=== PATIENT | male | born 1985 | race Caucasian/White ===

== ENCOUNTER 2016-08-28 09:05 | Emergency (ER) | payer MEDICARE, OTHER ==
[2016-08-28] MEDS ORDERED: ACETAMINOPHEN 325 MG TABLET PO ONE (10:32)
--- NOTE | 2016-08-28 10:32 | ER Document Report ---
ED ENT - General Chief Complaint: Ear Pain Stated Complaint: EAR PAIN Mode of Arrival: Ambulatory Information source: Patient Notes: This is a 30-year-old male who presents with left ear pain for the past 2 days. He states that it feels similar to prior ear infection. He has a history of hypertension and he did take his scheduled clonidine and amlodipine this morning prior to arrival. He denies any fevers or chills or systemic symptoms. He has had no sore throat and mild nasal congestion. He is on dialysis and has not missed any appointments and is scheduled for dialysis tomorrow. TRAVEL OUTSIDE OF THE [place] IN LAST 30 DAYS: No - Related Data Allergies/Adverse Reactions: No Known Allergies Allergy (Verified 08/28/16 09:17) Past Medical History - General Information source: Patient - Social History Smoking Status: Current Every Day Smoker Cigarette use (# per day): No Chew tobacco use (# tins/day): No Frequency of alcohol use: Occasional Drug Abuse: None Family History: Reviewed & Not Pertinent Patient has suicidal ideation: No Patient has homicidal ideation: No - Past Medical History Cardiac Medical History: Reports: Hx Hypertension - meds x 4-5 yrs Denies: Hx Coronary Artery Disease, Hx Heart Attack Pulmonary Medical History: Denies: Hx Asthma, Hx Bronchitis, Hx COPD, Hx Pneumonia, Hx Tuberculosis Neurological Medical History: Denies: Hx Cerebrovascular Accident, Hx Seizures Renal/ Medical History: Reports: Hx Renal Insufficiency, Other - dialysis. Denies: Hx Peritoneal Dialysis Musculoskeltal Medical History: Denies Hx Arthritis Psychiatric Medical History: Reports: Hx Depression - Immunizations Immunizations up to date: Yes Hx Diphtheria, Pertussis, Tetanus Vaccination: Yes Review of Systems - Review of Systems Notes: REVIEW OF SYSTEMS: CONSTITUTIONAL : Denies fever, chills, or sweats. Denies recent illness. EENT: As per history of present illness CARDIOVASCULAR: Denies chest pain. RESPIRATORY: Denies cough, cold, or chest congestion. Denies shortness of breath, difficulty breathing, or wheezing. GASTROINTESTINAL: Denies abdominal pain. Denies nausea, vomiting, or diarrhea. Denies constipation. GENITOURINARY: Denies difficulty urinating, painful urination, burning, frequency, or blood in urine. MUSCULOSKELETAL: Denies neck or back pain or joint pain or swelling. SKIN: Denies rash or skin lesions. HEMATOLOGIC : Denies easy bruising or bleeding. LYMPHATIC: Denies swollen, enlarged glands. NEUROLOGICAL: Denies altered mental status or loss of consciousness. Denies headache. PSYCHIATRIC: Denies anxiety or stress or depression. ALL OTHER SYSTEMS REVIEWED AND NEGATIVE. Physical Exam - Vital signs Vitals: Temp Pulse Resp BP Pulse Ox 97.7 F 91 20 175/106 H 96 08/28/16 09:11 08/28/16 09:11 08/28/16 09:11 08/28/16 09:11 08/28/16 09:11 - Notes Notes: PHYSICAL EXAMINATION: GENERAL: Well-appearing, well-nourished and in no acute distress. HEAD: Atraumatic, normocephalic. EYES: Pupils equal round and reactive to light, extraocular movements intact, sclera anicteric, conjunctiva are normal. ENT: nares patent, oropharynx clear without exudates. Moist mucous membranes. R TM pearly anderson and clear. Left TM erythematous and bulging with purulence. NECK: Normal range of motion, supple without lymphadenopathy LUNGS: Breath sounds clear to auscultation bilaterally and equal. No wheezes rales or rhonchi. HEART: Regular rate and rhythm without murmurs ABDOMEN: Soft, nontender, normoactive bowel sounds. No guarding, no rebound. No masses appreciated. EXTREMITIES: Normal range of motion, no pitting or edema. No cyanosis. NEUROLOGICAL: No focal motor or sensory deficits PSYCH: Normal mood, normal affect. SKIN: Warm, Dry, normal turgor, no rashes or lesions noted. Course - Re-evaluation Re-evalutation: 08/28/16 10:29 Patient states he has tolerated amoxicillin in the past without difficulties. He is instructed to monitor his blood pressure home. He will follow up for dialysis tomorrow. He is comfortable with the plan and agrees to return for any fevers or worsening symptoms. - Vital Signs Vital signs: Temp Pulse Resp BP Pulse Ox 97.7 F 91 20 175/106 H 96 08/28/16 09:11 08/28/16 09:11 08/28/16 09:11 08/28/16 09:11 08/28/16 09:11 Discharge - Discharge Clinical Impression: Elevated blood pressure reading Left otitis media Qualifiers: Otitis media type: unspecified Disposition: HOME, SELF-CARE Additional Instructions: OTITIS MEDIA: You have a middle ear infection (otitis media). This is usually a complication of a cold or sore throat. The middle ear cavity becomes filled with infection. Pressure and stretching of the ear drum cause pain. Antibiotics are required. A 10 day course is usually prescribed. A decongestant may be recommended if you have a "runny nose." You may need anesthetic drops or other pain medication. A follow-up exam may be recommended to make sure the infection has completely cleared. If the ear begins to drain, it means the ear drum has ruptured. This will usually heal spontaneously. However, it means you should keep the ear dry until re-examined by a doctor. Call the physician or return for examination at once if there is severe headache, stiff neck, confusion, increasing fever, or dizziness. You should improve significantly within two days. If you're not better, call the doctor. AMOXICILLIN: Amoxicillin is a member of the penicillin family. It covers the germs likely to cause ear, bronchial, and urinary infections better than plain penicillin. Amoxicillin can be taken without regard to meals. Nausea after taking the medication is rare, but can occur. Diarrhea can occur, particularly in small children. Vaginal yeast infections and oral thrush in infants are also common. Contact your physician if these problems occur. Allergy to penicillins is common. If you have had an allergic reaction to any drug of the penicillin family, you should never take any other penicillin. Notify your doctor at once if you develop hives, itching, swelling, faintness, or shortness of breath. Less serious side effects can include nausea or diarrhea. USE OF ACETAMINOPHEN (Tylenol): Acetaminophen may be taken for pain relief or fever control. It's much safer than aspirin, offering a wider range of "safe" dosages. It is safe during . Some brand names are Tylenol, Panadol, Datril, Anacin 3, Tempra, and Liquiprin. Acetaminophen can be repeated every four hours. The following are maximum recommended dosages: WEIGHT Dose Drops Elixir Chewable( 80mg) (LBS.) drprs=droppers tsp=teaspoon 6 40 mg 0.4 ml (1/2) 6-11 80 mg 0.8 ml (full) tsp 1 tab 12-16 120 mg 1 1/2 drprs 3/4 tsp 1 1/2 tabs 17-23 160 mg 2 drprs 1 tsp 2 tabs 24-30 240 mg 3 drprs 1 1/2 tsp 3 tabs 30-35 320 mg 2 tsp 4 tabs 36-41 360 mg 2 1/4 tsp 4 1/2 tabs 42-47 400 mg 2 1/2 tsp 5 tabs 48-53 480 mg 3 tsp 6 tabs 54-59 520 mg 3 1/4 tsp 6 1/2 tabs 60-64 560 mg 3 1/2 tsp 7 tabs 65-70 600 mg 3 3/4 tsp 7 1/2 tabs 71-76 640 mg 4 tsp 8 tabs 77-82 720 mg 4 1/2 tsp 9 tabs 83-88 800 mg 5 tsp 10 tabs >89 pounds or adults 650 mg to 900 mg Acetaminophen can be repeated every four hours. Maximum dose not to exceed 4000 mg a day. These maximum recommended dosages are slightly higher than the dosages written on the product container, but these dosages are very safe and below the toxic dosage for acetaminophen. FOLLOW-UP CARE: If you have been referred to a physician for follow-up care, call the physician s office for an appointment as you were instructed or within the next two days. If you experience worsening or a significant change in your symptoms, notify the physician immediately or return to the Emergency Department at any time for re-evaluation. Prescriptions: Amoxicillin 500 mg PO TID #30 capsule Forms: Elevated Blood Pressure, Smoking Cessation Education
[2016-08-28 10:49] VITALS: BP 142/106
== END 2016-08-28 10:39 | disposition home or self-care (01) ==
LOC: ER 09:05
DX: R03.0 Elevated blood-pressure reading, without diagnosis of hypertension (principal); H66.92 Otitis media, unspecified, left ear; H92.02 Otalgia, left ear; I10 Essential (primary) hypertension; F17.210 Nicotine dependence, cigarettes, uncomplicated
CPT/HCPCS: 99282

== ENCOUNTER 2016-11-20 08:56 | Emergency (ER) | payer MEDICARE, OTHER, MEDICAID ==
[2016-11-20 09:25] VITALS: BP 181/116
[2016-11-20 10:12] LABS: ABSOLUTE EOSINOPHILS # (AUTO) 0.3 10^3/uL (0.0-0.6); ABSOLUTE LYMPHOCYTES (AUTO) 0.4 10^3/uL (0.5-4.7); ABSOLUTE MONOCYTES (AUTO) 0.5 10^3/uL (0.1-1.4); ABSOLUTE NEUT (AUTO) 4.4 10^3/uL (1.7-8.2); BASOPHILS % (AUTO) 0.7 % (0-2); EOSINOPHILS % (AUTO) 4.9 % (0-6); HEMATOCRIT 41.6 % (37.9-51.0); HEMOGLOBIN 13.7 g/dL (13.5-17.0); HGB HCT DIFFERENCE -0.5; LYMPHOCYTES % (AUTO) 7.4 % (13-45); MEAN CORPUSCULAR HGB CONC 33.1 g/dL (32.0-36.0); MEAN CORPUSCULAR VOLUME 94 fl (80-97); MONOCYTES % (AUTO) 9.2 % (3-13); RED BLOOD COUNT 4.43 10^6/uL (4.35-5.55); RED CELL DISTRIBUTION WIDTH 14.2 % (11.5-14.0); SEGMENTED NEUTROPHILS % (AUTO) 77.8 % (42-78); WHITE BLOOD COUNT 5.7 10^3/uL (4.0-10.5)
--- NOTE | 2016-11-20 10:26 | ER Document Report ---
ED General - General Information source: Patient TRAVEL OUTSIDE OF THE [place] IN LAST 30 DAYS: No - HPI Patient complains to provider of: Headache Onset: Other - 11/14/2016 Onset/Duration: Gradual, Persistent Associated symptoms: Headache, Nausea, Sinus pain/drainage - Runny nose, Sore throat <SHAYY RIVERA - Last Filed: 11/20/16 11:11> <RAJ ALFORD - Last Filed: 11/20/16 15:39> - General Chief Complaint: Headache Stated Complaint: HEADACHE Notes: Patient is a 30-year-old male presenting to the emergency department concerned of headache onset 11/14/2016 after his hemodialysis treatment. Patient has a history of polycystic kidneys and is on dialysis Sunday, , and Saturdays. Patient states that he frequently gets headaches after dialysis, but they don't normally last this long. Patient missed dialysis Sunday, 11/18 because he just didn't feel like going. Patient admits to nausea, runny nose, and sore throat as well. Patient also has a history of hypertension, which is treated by his clinical trials data coordinator, Dr. Cox. (SHAYY RIVERA) - Related Data Allergies/Adverse Reactions: No Known Allergies Allergy (Verified 11/20/16 10:22) Home Medications: Current Home Medications Amlodipine Besylate [Norvasc 10 mg Tablet] 10 mg PO BID 11/20/16 [History] Clonidine HCl 0.2 mg PO BID 11/20/16 [History] Past Medical History - General Information source: Patient, [facility] Records - Social History Smoking Status: Current Every Day Smoker Family History: Reviewed & Not Pertinent Patient has suicidal ideation: No Patient has homicidal ideation: No - Past Medical History Cardiac Medical History: Reports: Hx Hypertension - Medicated Renal/ Medical History: Reports: Hx Renal Insufficiency Psychiatric Medical History: Reports: Hx Depression - Immunizations Immunizations up to date: Yes Hx Diphtheria, Pertussis, Tetanus Vaccination: Yes <SHAYY RIVERA - Last Filed: 11/20/16 11:11> Review of Systems - Review of Systems Constitutional: No symptoms reported EENT: See HPI, Nose congestion, Throat pain, Other - Headache Cardiovascular: No symptoms reported Respiratory: No symptoms reported Gastrointestinal: See HPI, Nausea Genitourinary: No symptoms reported Male Genitourinary: No symptoms reported Musculoskeletal: No symptoms reported Skin: No symptoms reported Hematologic/Lymphatic: No symptoms reported Neurological/Psychological: No symptoms reported -: Yes All other systems reviewed and negative <SHAYY RIVERA - Last Filed: 11/20/16 11:11> Physical Exam - General General appearance: Alert - HEENT Head: Normocephalic, Atraumatic. No: Tenderness - Not significantly tender to palpation Eyes: Other - Photophobic Pupils: PERRL Ears: Other - Sound sensitive Neck: Supple - Respiratory Respiratory status: No respiratory distress Chest status: Nontender Breath sounds: Normal Chest palpation: Normal - Cardiovascular Rhythm: Regular Heart sounds: Normal auscultation Murmur: No - Abdominal Inspection: Normal Distension: No distension Bowel sounds: Normal Tenderness: Nontender Organomegaly: No organomegaly - Back Back: Normal, Nontender - Extremities General upper extremity: Nontender, Other - Fistula in left forearm General lower extremity: Normal inspection, Nontender - Neurological Neuro grossly intact: Yes Cognition: Normal Orientation: AAOx4 Sincere Coma Scale Eye Opening: Spontaneous Farrell Coma Scale Verbal: Oriented Sincere Coma Scale Motor: Obeys Commands Farrell Coma Scale Total: 15 - Psychological Associated symptoms: Normal affect, Normal mood - Skin Skin Temperature: Warm Skin Moisture: Dry Skin Color: Normal <SHAYY RIVERA - Last Filed: 11/20/16 11:11> <RAJ ALFORD - Last Filed: 11/20/16 15:39> - Vital signs Vitals: Temp Pulse Resp BP Pulse Ox 97.8 F 90 16 181/116 H 99 11/20/16 09:01 11/20/16 09:01 11/20/16 09:01 11/20/16 09:01 11/20/16 09:01 - General Notes: Appears uncomfortable (SHAYY RIVERA) Course - Laboratory Result Diagrams: 11/20/16 09:54 11/20/16 09:54 <SHAYY RIVERA - Last Filed: 11/20/16 11:11> - Laboratory Result Diagrams: 11/20/16 09:54 11/20/16 09:54 - EKG Interpretation by Mo EKG shows normal: Sinus rhythm, Reardan, Intervals, QRS Complexes, ST-T Waves Rhythm: NSR Voltage: Consistant with LVH <RAJ ALFORD - Last Filed: 11/20/16 15:39> - Re-evaluation Re-evalutation: 11/20/16 15:37 The nurse informed me that shortly after she gave the patient the ordered medications, he had eloped with his belongings, and possibly a saline lock still in place. They attempted to call him and call went to voice mail. (RAJ ALFORD) - Vital Signs Vital signs: Temp Pulse Resp BP Pulse Ox 97.8 F 90 16 181/116 H 99 11/20/16 09:01 11/20/16 09:01 11/20/16 09:01 11/20/16 09:01 11/20/16 09:01 - Laboratory Laboratory results interpreted by me: 11/20/16 11/20/16 11/20/16 09:54 09:54 09:54 RDW 14.2 H Plt Count 128 L Lymphocytes % 7.4 L Absolute Lymphocytes 0.4 L Carbon Dioxide 21 L BUN 56 H Creatinine 7.57 H Est GFR ( Amer) 10 L Est GFR (Non-Af Amer) 8 L ALT 17 L Urine Protein 100 H Urine Glucose (UA) 150 H Urine Blood SMALL H Discharge <SHAYY RIVERA - Last Filed: 11/20/16 11:11> <RAJ ALFORD - Last Filed: 11/20/16 15:39> - Discharge Clinical Impression: Headache Qualifiers: Headache type: unspecified Headache chronicity pattern: unspecified pattern Intractability: not intractable Qualified Code(s): R51 - Headache Disposition: ELOPED Referrals: JIMENEZ RAMIREZ MD [Primary Care Provider] - Follow up as needed Scribe Attestation: 11/20/16 15:37 I personally performed the services described in the documentation, reviewed and edited the documentation which was dictated to the scribe in my presence, and it accurately records my words and actions. (RAJ ALFORD) Scribe Documentation - Scribe Written by Chandrakant:: Shayy Rivera 11/20/2016 1025 acting as scribe for :: Tello <SHAYY RIVERA - Last Filed: 11/20/16 11:11>
[2016-11-20 10:31] LABS: ALANINE AMINOTRANSFERASE 17 U/L (21-72); ALBUMIN 4.1 g/dL (3.5-5.0); ALKALINE PHOSPHATASE 92 U/L (38-126); ANION GAP 16 (5-19); ASPARTATE AMINO TRANSFERASE 19 U/L (17-59); BILIRUBIN,DIRECT 0.3 mg/dL (0.0-0.4); BILIRUBIN,TOTAL 0.4 mg/dL (0.2-1.3); BLOOD UREA NITROGEN 56 mg/dL (7-20); CALCIUM 9.2 mg/dL (8.4-10.2); CARBON DIOXIDE 21 mmol/L (22-30); CHLORIDE 106 mmol/L (98-107); CREATININE RESULT 7.57 mg/dL (0.52-1.25); GLUCOSE 89 mg/dL (75-110); SODIUM 142.7 mmol/L (137-145); TOTAL PROTEIN 6.7 g/dL (6.3-8.2)
[2016-11-20 10:33] LABS: APPEARANCE,URINE CLEAR; BILIRUBIN,URINE NEGATIVE (NEGATIVE); GLUCOSE, URINE 150 mg/dL (NEGATIVE); KETONES,URINE NEGATIVE (NEGATIVE); LEUKOCYTE ESTERASE,URINE NEGATIVE (NEGATIVE); NITRITE,URINE NEGATIVE (NEGATIVE); PROTEIN,URINE 100 mg/dL (NEGATIVE); URINE SPECIFIC GRAVITY 1.006; UROBILINOGEN,URINE NEGATIVE mg/dL (<2.0)
[2016-11-20] MEDS ORDERED: METOCLOPRAMIDE HCL INJ/PF 10 MG/2 ML SDV IV ONE (10:55)
[2016-11-20] MEDS ORDERED: DIPHENHYDRAMINE HCL 50 MG/ML VIAL IV ONE (10:55)
--- NOTE | 2016-11-20 13:30 | EKG REPORT ---
SEVERITY:- ABNORMAL ECG - SINUS RHYTHM CONSIDER LEFT VENTRICULAR HYPERTROPHY : Confirmed by: Festus Keen MD 20-Nov-2016 13:29:17
== END 2016-11-20 12:15 | disposition left against medical advice (07) ==
LOC: ER 08:56
DX: R51 Headache (principal); Q61.3 Polycystic kidney, unspecified; Z99.2 Dependence on renal dialysis; Z91.15 Patient's noncompliance with renal dialysis; J02.9 Acute pharyngitis, unspecified; R11.0 Nausea; J34.89 Other specified disorders of nose and nasal sinuses; I10 Essential (primary) hypertension; Z79.899 Other long term (current) drug therapy; F17.200 Nicotine dependence, unspecified, uncomplicated; H53.149 Visual discomfort, unspecified; R09.81 Nasal congestion; Z53.20 Procedure and treatment not carried out because of patient's decision for unspecified reasons
CPT/HCPCS: 93005; 99281; 96374; 96375; 36415; 85025; 80053; 81001; 93010; J1200; J2765

== ENCOUNTER 2017-02-14 12:52 | Emergency (ER) | payer MEDICARE, OTHER, MEDICAID ==
[2017-02-14] MEDS ORDERED: CLONIDINE HCL 0.2 MG TABLET PO ONE (14:04)
[2017-02-14] MEDS ORDERED: AMLODIPINE BESYLATE 5 MG TABLET PO ONE (14:04)
[2017-02-14] MEDS ORDERED: AMLODIPINE BESYLATE 10 MG TABLET PO ONE (14:04)
--- NOTE | 2017-02-14 15:00 | RADIOLOGY REPORT (SQ) ---
EXAM DESCRIPTION: CT LTD RENAL STONE PROTOCOL ON COMPLETED DATE/TIME: 02/14/2017 2:32 pm REASON FOR STUDY: left flank, L side abd pain COMPARISON: 11/04/2015. TECHNIQUE: CT scan of the abdomen and pelvis performed without intravenous or oral contrast. Images reviewed with lung, soft tissue, and bone windows. Reconstructed coronal and sagittal MPR images revi ewed. All images stored on PACS. All CT scanners at this facility use dose modulation, iterative reconstruction, and/or weight based d osing when appropriate to reduce radiation dose to as low as reasonably achievable (ALARA). [facility]: Dose Right [facility]: CareDose [facility]: Dose Right [facility]: Teradose 4D [facility]: Smart LaunchTrack RADIATION DOSE: Up-to-date CT equipment and radiation dose reduction techniques were employed. CTDIv ol: 7.1 mGy. DLP: 409 mGy-cm.mGy. LIMITATIONS: None. FINDINGS: LOWER CHEST: No significant findings. No nodules or infiltrates. NON-CONTRASTED LIVER, SPLEEN, ADRENALS: Evaluation limited by lack of IV contrast. Unable to visuali ze the adrenal glands. No identified significant masses. PANCREAS: No masses. No peripancreatic inflammatory changes. GALLBLADDER: No identified stones by CT criteria. No inflammatory changes to suggest cholecystitis. RIGHT KIDNEY AND URETER: Massively enlarged, measuring 26 cm in length. Again seen are innumerable c ystic lesions of variable size and shape. LEFT KIDNEY AND URETER: Massively enlarged, measuring 28 cm in length. Again seen are innumerable cy stic lesions of variable size and shape. AORTA AND RETROPERITONEUM: No aneurysm. No retroperitoneal masses or adenopathy. BOWEL AND PERITONEAL CAVITY: No obvious masses or inflammatory changes. No free fluid. APPENDIX: Normal. PELVIS, BLADDER, AND ABDOMINAL WALL:No abnormal masses. No free fluid. Bladder normal. BONES: No significant findings. OTHER: No other significant finding. IMPRESSION: LIMITED STUDY DUE TO MASSIVE RENAL ENLARGEMENT. EXTENSIVE POLYCYSTIC KIDNEY DISEASE WIT H INNUMERABLE CYSTS OF VARIABLE SIZE AND SHAPE. SIMILAR APPEARANCE TO THE PREVIOUS STUDY. NO DEFINI TE ACUTE FINDINGS. TECHNICAL DOCUMENTATION: JOB ID: [id number] Quality ID # [id number]: Final reports with documentation of one or more dose reduction techniques (e.g., Au tomated exposure control, adjustment of the mA and/or kV according to patient size, use of iterative reconstruction technique) 2010 [employer]- All Rights Reserved
[2017-02-14 15:18] LABS: ABSOLUTE BASOPHILS # (AUTO) 0.1 10^3/uL (0.0-0.2); ABSOLUTE EOSINOPHILS # (AUTO) 0.3 10^3/uL (0.0-0.6); ABSOLUTE LYMPHOCYTES (AUTO) 0.9 10^3/uL (0.5-4.7); ABSOLUTE MONOCYTES (AUTO) 0.5 10^3/uL (0.1-1.4); ABSOLUTE NEUT (AUTO) 5.1 10^3/uL (1.7-8.2); BASOPHILS % (AUTO) 0.9 % (0-2); EOSINOPHILS % (AUTO) 4.6 % (0-6); HEMATOCRIT 40.3 % (37.9-51.0); HEMOGLOBIN 13.7 g/dL (13.5-17.0); HGB HCT DIFFERENCE 0.8; LYMPHOCYTES % (AUTO) 12.9 % (13-45); MEAN CORPUSCULAR HEMOGLOBIN 31.4 pg (27.0-33.4); MEAN CORPUSCULAR VOLUME 93 fl (80-97); MONOCYTES % (AUTO) 7.6 % (3-13); RED BLOOD COUNT 4.35 10^6/uL (4.35-5.55); RED CELL DISTRIBUTION WIDTH 14.6 % (11.5-14.0); WHITE BLOOD COUNT 6.9 10^3/uL (4.0-10.5)
[2017-02-14 15:23] LABS: ALANINE AMINOTRANSFERASE 23 U/L (21-72); ALBUMIN 4.6 g/dL (3.5-5.0); ALKALINE PHOSPHATASE 80 U/L (38-126); ASPARTATE AMINO TRANSFERASE 17 U/L (17-59); BILIRUBIN,DIRECT 0.5 mg/dL (0.0-0.4); BILIRUBIN,TOTAL 0.5 mg/dL (0.2-1.3); BLOOD UREA NITROGEN 50 mg/dL (7-20); CALCIUM 9.5 mg/dL (8.4-10.2); CARBON DIOXIDE 23 mmol/L (22-30); CHLORIDE 97 mmol/L (98-107); GLUCOSE 100 mg/dL (75-110); LIPASE 118.8 U/L (23-300); TOTAL PROTEIN 7.6 g/dL (6.3-8.2)
[2017-02-14] MEDS ORDERED: OXYCODONE-ACETAMINOPHEN 5-325 MG TABLET PO ONE (15:29)
[2017-02-14 15:30] LABS: ANION GAP 19 (5-19); SODIUM 139.2 mmol/L (137-145)
[2017-02-14 15:58] LABS: APPEARANCE,URINE CLEAR; BILIRUBIN,URINE NEGATIVE (NEGATIVE); GLUCOSE, URINE 50 mg/dL (NEGATIVE); KETONES,URINE NEGATIVE (NEGATIVE); LEUKOCYTE ESTERASE,URINE SMALL (NEGATIVE); NITRITE,URINE NEGATIVE (NEGATIVE); PROTEIN,URINE >=500 mg/dL (NEGATIVE); URINE SPECIFIC GRAVITY 1.008; UROBILINOGEN,URINE NEGATIVE mg/dL (<2.0)
--- NOTE | 2017-02-14 17:22 | ER Document Report ---
ED GI/ - General Chief Complaint: Abdominal Pain Stated Complaint: ABDOMINAL PAIN Time Seen by Provider: 02/14/17 13:29 Mode of Arrival: Medic Information source: Patient Notes: Patient presents complaining of left flank pain that radiates around to left side of abdomen for the past week. Patient states earlier today he had a sharp episode of pain that lasted for 20 minutes. Patient states that the pain has now returned to a more manageable level. Patient states that he frequently will have chronic pain due to polycystic kidney disease. Patient states he has had some nausea but denies any vomiting or diarrhea. Last bowel movement was yesterday. Patient denies any fever or urinary symptoms. TRAVEL OUTSIDE OF THE [place] IN LAST 30 DAYS: No - HPI Patient complains to provider of: Abdominal pain, Flank pain Onset: Last week Timing/Duration: Persistent Quality of pain: Achy Severity at maximum: Severe Severity in ED: Moderate Pain Level: 3 Location: LLQ, Left flank Associated symptoms: Nausea. denies: Diarrhea, Urinary hesitancy, Urinary frequency, Urinary retention, Urinary urgency, Vomiting Exacerbated by: Denies Relieved by: Denies Similar symptoms previously: Yes Recently seen / treated by doctor: No - Related Data Allergies/Adverse Reactions: No Known Allergies Allergy (Verified 02/14/17 13:17) Home Medications: Current Home Medications Amlodipine Besylate [Amlodipine Besylate] 10 mg PO BID 02/14/17 [History] Clonidine HCl [Clonidine HCl] 0.2 mg PO BID 02/14/17 [History] Past Medical History - General Information source: Patient - Social History Smoking Status: Current Every Day Smoker Frequency of alcohol use: Occasional Drug Abuse: Marijuana Occupation: None Lives with: Family Family History: Reviewed & Not Pertinent Patient has suicidal ideation: No Patient has homicidal ideation: No - Past Medical History Cardiac Medical History: Reports: Hx Hypertension - Medicated Denies: Hx Coronary Artery Disease, Hx Heart Attack Pulmonary Medical History: Denies: Hx Asthma, Hx Bronchitis, Hx COPD, Hx Pneumonia, Hx Tuberculosis Neurological Medical History: Denies: Hx Cerebrovascular Accident, Hx Seizures Renal/ Medical History: Reports: Hx Hemodialysis, Hx Renal Insufficiency, Other - Polycystic kidney disease. Denies: Hx Peritoneal Dialysis Musculoskeltal Medical History: Denies Hx Arthritis Psychiatric Medical History: Reports: Hx Depression Past Surgical History: Reports: Hx Vascular Surgery - AV fistula L forearm - Immunizations Immunizations up to date: Yes Hx Diphtheria, Pertussis, Tetanus Vaccination: Yes Review of Systems - Review of Systems Constitutional: No symptoms reported. denies: Fever, Recent illness EENT: No symptoms reported Cardiovascular: No symptoms reported. denies: Chest pain Respiratory: No symptoms reported. denies: Cough, Short of breath Gastrointestinal: Abdominal pain, Nausea. denies: Diarrhea, Vomiting Genitourinary: Flank pain. denies: Dysuria Male Genitourinary: No symptoms reported Musculoskeletal: Back pain Skin: No symptoms reported Hematologic/Lymphatic: No symptoms reported Neurological/Psychological: No symptoms reported Physical Exam - Vital signs Vitals: Temp Pulse Resp BP Pulse Ox 98.5 F 84 18 162/121 H 97 02/14/17 13:10 02/14/17 13:10 02/14/17 13:10 02/14/17 13:10 02/14/17 13:10 - General General appearance: Appears well, Alert In distress: None - HEENT Head: Normocephalic, Atraumatic Eyes: Normal Nasal: Normal Mouth/Lips: Normal Mucous membranes: Normal Neck: Normal, Supple. No: Lymphadenopathy - Respiratory Respiratory status: No respiratory distress Chest status: Nontender Breath sounds: Normal. No: Rales, Rhonchi, Stridor, Wheezing Chest palpation: Normal - Cardiovascular Rhythm: Regular Heart sounds: S1 appreciated, S2 appreciated Murmur: No - Abdominal Inspection: Normal Distension: No distension Bowel sounds: Normal Tenderness: Tender - LLQ Organomegaly: No organomegaly - Back Back: CVA tenderness - left - Extremities General upper extremity: Normal inspection, Normal ROM General lower extremity: Normal inspection, Normal ROM - Neurological Neuro grossly intact: Yes Cognition: Normal Sincere Coma Scale Eye Opening: Spontaneous Sincere Coma Scale Verbal: Oriented Sincere Coma Scale Motor: Obeys Commands Sincere Coma Scale Total: 15 - Psychological Associated symptoms: Normal affect, Normal mood - Skin Skin Temperature: Warm Skin Moisture: Dry Skin Color: Normal Course - Re-evaluation Re-evalutation: 02/14/17 17:21 Pt states he still has a dull pain to left flank area, but states that he typically has this pain chronically due to his polycystic kidney disease. Patient states that he primarily came in today because he had a short period of very sharp pain to the left flank area that got him concerned. Patient states that he is feeling much better at this time. Consulted with Dr. Ellis regarding patient presentation and diagnostic evaluation. Agrees with discharge plan of care. Patient presents with abdominal pain without signs of peritonitis or other life- threatening or serious etiology. Patient appears stable for discharge and has been instructed to return immediately if the symptoms worsen in any way, or in 8 -12 hours if not improved for reevaluation. The patient has been instructed to return if the symptoms worsen or change in any way. 02/14/17 17:22 The patient has been informed that they hypertension based on a blood pressure reading in the emergency department. I recommend that patient call the primary care provider listed on their discharge instructions or a physician of their choice by this week to arrange follow-up for further evaluation of hypertension. - Vital Signs Vital signs: Temp Pulse Resp BP Pulse Ox 98.5 F 84 18 151/103 H 96 02/14/17 13:10 02/14/17 17:42 02/14/17 17:42 02/14/17 17:42 02/14/17 17:42 - Laboratory Result Diagrams: 02/14/17 13:05 02/14/17 13:05 Laboratory results interpreted by me: 02/14/17 02/14/17 02/14/17 13:05 13:05 15:44 RDW 14.6 H Plt Count 143 L Lymphocytes % 12.9 L Chloride 97 L BUN 50 H Creatinine 8.90 H Est GFR ( Amer) 8 L Est GFR (Non-Af Amer) 7 L Direct Bilirubin 0.5 H Urine Protein >=500 H Urine Glucose (UA) 50 H Urine Blood SMALL H Ur Leukocyte Esterase SMALL H 02/14/17 17:23 Labs- Entire Visit 02/14/17 02/14/17 02/14/17 13:05 13:05 15:44 WBC 6.9 RBC 4.35 Hgb 13.7 Hct 40.3 MCV 93 MCH 31.4 MCHC 34.0 RDW 14.6 H Plt Count 143 L Seg Neutrophils % 74.0 Lymphocytes % 12.9 L Monocytes % 7.6 Eosinophils % 4.6 Basophils % 0.9 Absolute Neutrophils 5.1 Absolute Lymphocytes 0.9 Absolute Monocytes 0.5 Absolute Eosinophils 0.3 Absolute Basophils 0.1 Sodium 139.2 Potassium 4.0 Chloride 97 L Carbon Dioxide 23 Anion Gap 19 BUN 50 H Creatinine 8.90 H Est GFR ( Amer) 8 L Est GFR (Non-Af Amer) 7 L Glucose 100 Calcium 9.5 Total Bilirubin 0.5 Direct Bilirubin 0.5 H Indirect Bilirubin Not Reportable Neonat Total Bilirubin Not Reportable AST 17 ALT 23 Alkaline Phosphatase 80 Total Protein 7.6 Albumin 4.6 Lipase 118.8 Urine Color YELLOW Urine Appearance CLEAR Urine pH 7.0 Ur Specific [place] 1.008 Urine Protein >=500 H Urine Glucose (UA) 50 H Urine Ketones NEGATIVE Urine Blood SMALL H Urine Nitrite NEGATIVE Urine Bilirubin NEGATIVE Urine Urobilinogen NEGATIVE Ur Leukocyte Esterase SMALL H Urine WBC (Auto) 7 Urine RBC (Auto) 0 Urine Ascorbic Acid NEGATIVE 02/14/17 18:39 - Diagnostic Test Radiology reviewed: Reports reviewed Discharge - Discharge Clinical Impression: Left flank pain, History of polycystic kidney disease Hypertension Qualifiers: Hypertension type: unspecified Qualified Code(s): I10 - Essential (primary) hypertension Abdominal pain Qualifiers: Abdominal location: left lower quadrant Qualified Code(s): R10.32 - Left lower quadrant pain Condition: Stable Disposition: HOME, SELF-CARE Instructions: Abdominal Pain ([facility]), Antinausea Medication ([facility]), Oral Narcotic Medication ([facility]) Additional Instructions: Return immediately for any new or worsening symptoms Followup with your primary care provider, call tomorrow to make a followup appointment Follow-up with your flyer repairer for recheck, call tomorrow for an appointment Take your blood pressure medication at home as prescribed Prescriptions: Acetaminophen with Codeine [Acetaminophen-Cod #3 Tablet] 1 each PO Q6 PRN #8 tablet PRN Reason: Ondansetron HCl [Zofran 4 mg Tablet] 1 - 2 tab PO Q6 PRN #15 tablet PRN Reason: Forms: Elevated Blood Pressure Referrals: ORESTES HUDSON MD [ACTIVE STAFF] - Follow up tomorrow [facility] [Provider Group] - Follow up tomorrow
[2017-02-14 17:43] VITALS: BP 151/103
== END 2017-02-14 17:42 | disposition home or self-care (01) ==
LOC: ER 12:52
DX: Q61.3 Polycystic kidney, unspecified (principal); R10.32 Left lower quadrant pain; R10.9 Unspecified abdominal pain; G89.29 Other chronic pain; R11.0 Nausea; I10 Essential (primary) hypertension; F17.200 Nicotine dependence, unspecified, uncomplicated
CPT/HCPCS: 99284; 36415; 83690; 85025; 80053; 81001; 76380; A9270 ×3

== ENCOUNTER 2018-07-11 11:12 | Observation (INO) | payer MEDICARE, OTHER ==
--- NOTE | 2018-07-11 11:27 | ER Document Report ---
ED General - General Stated Complaint: FLANK PAIN Time Seen by Provider: 07/11/18 11:16 TRAVEL OUTSIDE OF THE [place] IN LAST 30 DAYS: No - HPI Notes: Patient is a 32-year-old male with a history of hypertension, polycystic kidney disease, and end-stage renal disease (on dialysis) who presents to the ED complaining of right flank pain that radiates around into his right groin over the last 2 weeks. Patient states that he has not had any dialysis sessions in the last 2 weeks, and is still able to produce some urine. Patient states that he has been having car trouble which has been preventing him from getting to his dialysis sessions. Patient states that he is still able to eat and drink, but does have a decreased p.o. intake with intermittent nausea. He is having bowel movements, although sporadic at times. Patient states that he did take his blood pressure medications this morning. He has no other concerns or complaints at this time. Patient states that he has had pain in this area before from his cysts. Denies drug allergies. Denies any headache, fever, neck pain, changes in vision/speech/mentation/hearing, URI, sore throat, chest pain, palpitations, syncope, cough, shortness of breath, wheeze, dyspnea, vomiting/diarrhea, urinary retention, dysuria, hematuria, loss of control of bowel or bladder, numbn ess/tingling, saddle anesthesia, muscle paralysis/weakness, or rash. - Related Data Allergies/Adverse Reactions: No Known Allergies Allergy (Verified 02/14/17 13:17) Past Medical History - Social History Smoking Status: Unknown if Ever Smoked Family History: Reviewed & Not Pertinent - Past Medical History Cardiac Medical History: Reports: Hx Hypertension - Medicated Denies: Hx Coronary Artery Disease, Hx Heart Attack Pulmonary Medical History: Denies: Hx Asthma, Hx Bronchitis, Hx COPD, Hx Pneumonia, Hx Tuberculosis Neurological Medical History: Denies: Hx Cerebrovascular Accident, Hx Seizures Renal/ Medical History: Reports: Hx Hemodialysis, Hx Renal Insufficiency. Denies: Hx Peritoneal Dialysis Musculoskeletal Medical History: Denies Hx Arthritis Psychiatric Medical History: Reports: Hx Depression Past Surgical History: Reports: Hx Vascular Surgery - AV fistula L forearm - Immunizations Immunizations up to date: Yes Hx Diphtheria, Pertussis, Tetanus Vaccination: Yes Review of Systems - Review of Systems -: Yes All other systems reviewed and negative Physical Exam - Vital signs Vitals: Resp Pulse Ox 13 97 07/11/18 11:28 07/11/18 11:28 - Notes Notes: PHYSICAL EXAMINATION: GENERAL: Well-appearing, well-nourished and in no acute distress. A&Ox4. Answers questions appropriately. HEAD: Atraumatic, normocephalic. EYES: Pupils equal round and reactive to light, extraocular movements intact, sclera anicteric, conjunctiva are normal. ENT: Nares patent and without discharge. oropharynx clear without exudates. No tonsilar hypertrophy or erythema. Moist mucous membranes. NECK: Normal range of motion, supple without lymphadenopathy LUNGS: Breath sounds clear to auscultation bilaterally and equal. No wheezes rales or rhonchi. HEART: Regular rate and rhythm without murmurs, rubs, gallops. ABDOMEN: Soft, nondistended abdomen. No guarding, no rebound. No masses appreciated. Normal bowel sounds present. + rt CVA tenderness. + mild rt abd tenderness. Musculoskeletal: FROM to passive/active. Strength 5+/5. Extremities: No cyanosis, clubbing, or edema b/l. Peripheral pulses 2+. Capillary refill less than 3 seconds. NEUROLOGICAL: Cranial nerves grossly intact. Normal speech, normal gait. Normal sensory, motor exams PSYCH: Normal mood, normal affect. SKIN: Warm, Dry, normal turgor, no rashes or lesions noted. Course - Re-evaluation Re-evalutation: 07/11/18 14:38 Pt has metabolic acidosis w/o any acute changes in mentation. Call placed to Dr. Remy Lopes. 07/11/18 15:[address] Alberto who would like to dialyze the pt tomorrow morning and to admit. Spoke with Dr. Wilson who accepted pt for admit. - Vital Signs Vital signs: Temp Pulse Resp BP Pulse Ox 98.4 F 13 181/118 H 97 07/11/18 11:39 07/11/18 13:40 07/11/18 13:40 07/11/18 13:40 - Laboratory Result Diagrams: 07/11/18 10:35 07/11/18 10:35 Laboratory results interpreted by me: 07/11/18 07/11/18 07/11/18 10:35 10:35 11:24 RBC 2.90 L Hgb 8.9 L Hct 26.1 L RDW 15.3 H Seg Neutrophils % 83.5 H Lymphocytes % 7.8 L Carbon Dioxide 14 L Anion Gap 28 H BUN 155 H Creatinine 22.00 H Est GFR ( Amer) 3 L Est GFR (Non-Af Amer) 2 L Direct Bilirubin 0.8 H AST 15 L ALT 15 L Urine Protein >=500 H Urine Glucose (UA) 150 H Urine Ketones TRACE H Urine Blood SMALL H Ur Leukocyte Esterase TRACE H Discharge - Discharge Clinical Impression: Metabolic acidosis, ESRD (end stage renal disease) on dialysis Condition: Stable Disposition: ADMITTED INPATIENT Admitting Provider: Hospitalist - Dr. wilson Unit Admitted: [facility]
[2018-07-11 11:28] LABS: ABSOLUTE BASOPHILS # (AUTO) 0.1 10^3/uL (0.0-0.2); ABSOLUTE EOSINOPHILS # (AUTO) 0.1 10^3/uL (0.0-0.6); ABSOLUTE LYMPHOCYTES (AUTO) 0.6 10^3/uL (0.5-4.7); ABSOLUTE MONOCYTES (AUTO) 0.5 10^3/uL (0.1-1.4); ABSOLUTE NEUT (AUTO) 6.3 10^3/uL (1.7-8.2); BASOPHILS % (AUTO) 1.2 % (0-2); EOSINOPHILS % (AUTO) 1.2 % (0-6); HEMATOCRIT 26.1 % (37.9-51.0); HEMOGLOBIN 8.9 g/dL (13.5-17.0); LYMPHOCYTES % (AUTO) 7.8 % (13-45); MEAN CORPUSCULAR HEMOGLOBIN 30.5 pg (27.0-33.4); MEAN CORPUSCULAR HGB CONC 33.9 g/dL (32.0-36.0); MEAN CORPUSCULAR VOLUME 90 fl (80-97); MONOCYTES % (AUTO) 6.3 % (3-13); PLATELET COUNT 163 10^3/uL (150-450); RED CELL DISTRIBUTION WIDTH 15.3 % (11.5-14.0); SEGMENTED NEUTROPHILS % (AUTO) 83.5 % (42-78); TOTAL CELLS COUNTED % (AUTO) 100 %; WHITE BLOOD COUNT 7.6 10^3/uL (4.0-10.5)
[2018-07-11 11:51] LABS: ALANINE AMINOTRANSFERASE 15 U/L (21-72); ALBUMIN 4.3 g/dL (3.5-5.0); ALKALINE PHOSPHATASE 68 U/L (38-126); ASPARTATE AMINO TRANSFERASE 15 U/L (17-59); BILIRUBIN,DIRECT 0.8 mg/dL (0.0-0.4); BILIRUBIN,TOTAL 0.8 mg/dL (0.2-1.3); CALCIUM 9.9 mg/dL (8.4-10.2); GLUCOSE 101 mg/dL (75-110); POTASSIUM 4.6 mmol/L (3.6-5.0); TOTAL PROTEIN 6.9 g/dL (6.3-8.2)
[2018-07-11 11:58] LABS: CARBON DIOXIDE 14 mmol/L (22-30); CHLORIDE 100 mmol/L (98-107)
[2018-07-11 11:59] LABS: BLOOD UREA NITROGEN 155 mg/dL (7-20)
[2018-07-11 12:24] LABS: ANION GAP 28 (5-19)
[2018-07-11] MEDS ORDERED: MORPHINE SULFATE 10 MG/ML INJ IV ONE (12:30)
--- NOTE | 2018-07-11 13:04 | EKG REPORT ---
SEVERITY:- ABNORMAL ECG - SINUS RHYTHM PROBABLE LEFT ATRIAL ABNORMALITY PROBABLE LEFT VENTRICULAR HYPERTROPHY : Confirmed by: Festus Keen MD 11-Jul-2018 13:03:53
[2018-07-11 13:46] LABS: APPEARANCE,URINE CLEAR; BILIRUBIN,URINE NEGATIVE (NEGATIVE); COLOR,URINE STRAW; GLUCOSE, URINE 150 mg/dL (NEGATIVE); KETONES,URINE TRACE mg/dL (NEGATIVE); LEUKOCYTE ESTERASE,URINE TRACE (NEGATIVE); NITRITE,URINE NEGATIVE (NEGATIVE); PROTEIN,URINE >=500 mg/dL (NEGATIVE); URINE SPECIFIC GRAVITY 1.011; UROBILINOGEN,URINE NEGATIVE mg/dL (<2.0)
--- NOTE | 2018-07-11 13:56 | RADIOLOGY REPORT (SQ) ---
EXAM DESCRIPTION: CT ABD/PELVIS NO ORAL OR IV COMPLETED DATE/TIME: 07/11/2018 1:21 pm REASON FOR STUDY: Rt flank pain COMPARISON: 11/02/2014 TECHNIQUE: CT scan of the abdomen and pelvis performed without intravenous or oral contrast. Images reviewed with lung, soft tissue, and bone windows. Reconstructed coronal and sagittal MPR images revi ewed. All images stored on PACS. All CT scanners at this facility use dose modulation, iterative reconstruction, and/or weight based d osing when appropriate to reduce radiation dose to as low as reasonably achievable (ALARA). [facility]: Dose Right [facility]: CareDose [facility]: Dose Right [facility]: Teradose 4D [facility]: Smart Anesiva RADIATION DOSE: CT Rad equipment meets quality standard of care and radiation dose reduction techniq ues were employed. CTDIvol: 6.5 mGy. DLP: 418 mGy-cm.mGy. LIMITATIONS: None. FINDINGS: LOWER CHEST: No significant findings. No nodules or infiltrates. NON-CONTRASTED LIVER, SPLEEN, ADRENALS: Evaluation limited by lack of IV contrast. No identified sign ificant masses. PANCREAS: No masses. No peripancreatic inflammatory changes. GALLBLADDER: No identified stones by CT criteria. No inflammatory changes to suggest cholecystitis. RIGHT KIDNEY AND URETER: Enlarged polycystic kidney with scattered areas of normal-appearing renal co rtex. There are some small nonspecific intrarenal calculi. No hydronephrosis or hydroureter. LEFT KIDNEY AND URETER: Enlarged polycystic kidney with scattered areas of normal appearing renal cor ellyn. Small nonspecific intrarenal calculi. No hydronephrosis or hydroureter. AORTA AND RETROPERITONEUM: No aneurysm. No retroperitoneal masses or adenopathy. BOWEL AND PERITONEAL CAVITY: No obvious masses or inflammatory changes. No free fluid. APPENDIX: Not identified. PELVIS, BLADDER, AND ABDOMINAL WALL:No abnormal masses. No free fluid. Bladder normal. BONES: No significant findings. OTHER: No other significant finding. IMPRESSION: Polycystic kidney disease. No acute findings. There are intrarenal calculi bilaterally that generally appear to be in the bartholomew of some of the cysts. No ureteral stones. COMMENT: Quality ID # [id number]: Final reports with documentation of one or more dose reduction techniques (e.g., Automated exposure control, adjustment of the mA and/or kV according to patient size, use of iterative reconstruction technique) TECHNICAL DOCUMENTATION: JOB ID: [id number] [employer]- All Rights Reserved Reading location - IP/workstation name: [email or web address]
[2018-07-11] MEDS ORDERED: ONDANSETRON HCL INJ/PF 4 MG/2 ML SDV IV ONE (15:19)
[2018-07-11] MEDS ORDERED: ONDANSETRON HCL INJ/PF 4 MG/2 ML SDV IV PRN (16:00)
--- NOTE | 2018-07-11 16:23 | PDOC H&P ---
History of Present Illness Admission Date/PCP: 07/11/18 15:34 History of Present Illness: TYLER REYNOLDS JR is a very pleasant but unfortunate 32 year old male patient with past medical history of hypertension, bilateral adult polycystic kidney disease, nonobstructive kidney stones bilateral and end-stage renal disease on hemodialysis, presents with chief complaint of right flank pain which radiates to his groin. Of note patient has not been dialyzed for the last 2 weeks due to lack of transport. His initial blood work shows BUN of 155, creatinine 22 GFR 2 bicarb of 28, fortunately his potassium is within normal limits. Patient also complains of sensation of fullness in his right ear. On examination his right eardrum is bulging and mildly hyperemic. His CT scan of the abdomen revealed bilateral polycystic kidney disease and bilateral intrarenal nonobstructive kidney stones. Patient denies any fever, chills, cough, chest pain, nausea, palpitation, diaphoresis, or diarrhea. ER attending has consulted Dr. Alberto who is going to dialyze him tomorrow. Past Medical History Cardiac Medical History: Reports: Hypertension - Medicated Denies: Coronary Artery Disease, Myocardial Infarction Pulmonary Medical History: Denies: Asthma, Bronchitis, Chronic Obstructive Pulmonary Disease (COPD), Pn eumonia, Tuberculosis Neurological Medical History: Denies: Seizures Musculoskeltal Medical History: Denies: Arthritis Psychiatric Medical History: Reports: Depression Hematology: Denies: Anemia Past Surgical History Past Surgical History: Reports: Vascular Surgery - AV fistula L forearm Social History Smoking Status: Unknown if Ever Smoked Frequency of Alcohol Use: Social Hx Recreational Drug Use: Yes Drugs: Marijuana - Advance Directive Resuscitation Status: Full Code Family History Family History: Reviewed & Not Pertinent, Hypertension Parental Family History Reviewed: Yes Children Family History Reviewed: Yes Sibling(s) Family History Reviewed.: Yes Medication/Allergy Allergies/Adverse Reactions: No Known Allergies Allergy (Verified 02/14/17 13:17) Review of Systems Constitutional: ABSENT: chills, fever(s), headache(s), weight gain, weight loss Eyes: ABSENT: visual disturbances Ears: ABSENT: hearing changes Cardiovascular: ABSENT: chest pain, dyspnea on exertion, edema, orthropnea, palpitations Respiratory: ABSENT: cough, hemoptysis Gastrointestinal: ABSENT: abdominal pain, constipation, diarrhea, hematemesis, hematochezia, nausea, vomiting Genitourinary: PRESENT: other - Flank pain. ABSENT: dysuria, hematuria Musculoskeletal: ABSENT: joint swelling Integumentary: ABSENT: rash, wounds Neurological: ABSENT: abnormal gait, abnormal speech, confusion, dizziness, focal weakness, syncope Psychiatric: ABSENT: anxiety, depression, homidical ideation, suicidal ideation Endocrine: ABSENT: cold intolerance, heat intolerance, polydipsia, polyuria Hematologic/Lymphatic: ABSENT: easy bleeding, easy bruising Physical Exam Vital Signs: Temp Pulse Resp BP Pulse Ox 98.4 F 13 181/118 H 97 07/11/18 11:39 07/11/18 13:40 07/11/18 13:40 07/11/18 13:40 General appearance: PRESENT: no acute distress Head exam: PRESENT: atraumatic, normocephalic Eye exam: PRESENT: conjunctiva pink Mouth exam: PRESENT: dry mucosa Neck exam: ABSENT: carotid bruit, JVD, lymphadenopathy, thyromegaly Respiratory exam: PRESENT: clear to auscultation marianela. ABSENT: rales, rhonchi, wheezes Cardiovascular exam: PRESENT: RRR. ABSENT: diastolic murmur, rubs, systolic murmur GI/Abdominal exam: PRESENT: normal bowel sounds, soft. ABSENT: distended, guarding, mass, organolmegaly, rebound, tenderness Gentrourinary exam: PRESENT: other - Right CVA tenderness Neurological exam: PRESENT: alert, awake, oriented to time, oriented to situation Results Laboratory Results: 07/11/18 10:35 07/11/18 10:35 07/11/18 07/11/18 07/11/18 10:35 10:35 11:24 WBC 7.6 RBC 2.90 L Hgb 8.9 L Hct 26.1 L MCV 90 MCH 30.5 MCHC 33.9 RDW 15.3 H Plt Count 163 Seg Neutrophils % 83.5 H Lymphocytes % 7.8 L Monocytes % 6.3 Eosinophils % 1.2 Basophils % 1.2 Absolute Neutrophils 6.3 Absolute Lymphocytes 0.6 Absolute Monocytes 0.5 Absolute Eosinophils 0.1 Absolute Basophils 0.1 Sodium 142.0 Potassium 4.6 Chloride 100 Carbon Dioxide 14 L Anion Gap 28 H BUN 155 H Creatinine 22.00 H Est GFR ( Amer) 3 L Est GFR (Non-Af Amer) 2 L Glucose 101 Calcium 9.9 Total Bilirubin 0.8 AST 15 L ALT 15 L Alkaline Phosphatase 68 Total Protein 6.9 Albumin 4.3 Lipase 158.0 Urine Color STRAW Urine Appearance CLEAR Urine pH 6.0 Ur Specific [place] 1.011 Urine Protein >=500 H Urine Glucose (UA) 150 H Urine Ketones TRACE H Urine Blood SMALL H Urine Nitrite NEGATIVE Ur Leukocyte Esterase TRACE H Urine WBC (Auto) 8 Urine RBC (Auto) 3 Impressions: Abdomen/Pelvis CT 07/11/18 12:30 IMPRESSION: Polycystic kidney disease. No acute findings. There are intrarenal calculi bilaterally that generally appear to be in the bartholomew of some of the cysts. No ureteral stones. Assessment & Plan - Diagnosis (1) Metabolic acidosis Is this a current diagnosis for this admission?: Yes Plan: Is related to his end-stage renal disease. Patient scheduled for dialysis tomorrow. (2) Missed dialysis Is this a current diagnosis for this admission?: Yes Plan: Patient scheduled for dialysis tomorrow. (4) Hypertensive urgency Is this a current diagnosis for this admission?: Yes Plan: Patient has been started on hydralazine and metoprolol. (5) Possible otitis media Is this a current diagnosis for this admission?: Yes Plan: Patient has been started on ceftriaxone. (6) Nonobstructive bilateral kidney stone Is this a current diagnosis for this admission?: Yes Plan: Follow-up with urologist as outpatient. (7) ADPKD (autosomal dominant polycystic kidney disease) Is this a current diagnosis for this admission?: Yes Plan: Follow-up with his evs manager.
[2018-07-11] MEDS: HEPARIN SOD (PORCINE) 5,000 UNIT/ML 1 ML SYRINGE SUBCUT SCH ×2 (16:46→22:24)
[2018-07-11] MEDS: METOPROLOL TARTRATE 50 MG TABLET PO SCH ×2 (16:47→22:24)
[2018-07-11] MEDS: LANSOPRAZOLE 15 MG TAB.RAP.DR PO SCH (16:50)
[2018-07-11 17:20] LABS: ARTERIAL BLOOD BASE EXCESS -11.5 mmol/L; ARTERIAL BLOOD H2CO3 0.93 mmol/L (1.05-1.35); ARTERIAL BLOOD HCO3 14.1 mmol/L (20-24); ARTERIAL BLOOD O2 SATURATION 96.2 % (94-98); ARTERIAL BLOOD PCO2 30.8 mmHg (35-45); ARTERIAL BLOOD PH 7.28 (7.35-7.45); ARTERIAL BLOOD PO2 91.2 mmHg (80-100); ARTERIAL BLOOD TOTAL CO2 15.1 mmol/L (23-27)
[2018-07-11 17:24] LABS: ARTERIAL BLOOD FIO2 ROOM AIR
[2018-07-11] MEDS ORDERED: CEFTRIAXONE 1 GM/D5W RTU 1 GM/50 ML RTUPB IV SCH (18:00)
[2018-07-11] MEDS: HYDRALAZINE HCL 50 MG TABLET PO SCH (18:34)
[2018-07-11] MEDS ORDERED: CEFTRIAXONE SODIUM 1,000 MG in DEXTROSE 5%-WATER 50 ML IV SCH (22:00)
[2018-07-12] MEDS: HYDRALAZINE HCL 50 MG TABLET PO SCH ×2 (01:00→05:33)
[2018-07-12] MEDS ORDERED: OXYCODONE-ACETAMINOPHEN 5-325 MG TABLET PO PRN (02:24)
[2018-07-12] MEDS ORDERED: HYDRALAZINE HCL INJ/PF 20 MG/1 ML SDV IV PRN (04:17)
[2018-07-12] MEDS: LANSOPRAZOLE 15 MG TAB.RAP.DR PO SCH (05:33)
[2018-07-12 05:38] VITALS: BP 156/99
[2018-07-12 05:51] LABS: ABSOLUTE BASOPHILS # (AUTO) 0.1 10^3/uL (0.0-0.2); ABSOLUTE EOSINOPHILS # (AUTO) 0.2 10^3/uL (0.0-0.6); ABSOLUTE MONOCYTES (AUTO) 0.7 10^3/uL (0.1-1.4); ABSOLUTE NEUT (AUTO) 4.8 10^3/uL (1.7-8.2); BASOPHILS % (AUTO) 1.2 % (0-2); EOSINOPHILS % (AUTO) 2.2 % (0-6); HEMOGLOBIN 8.3 g/dL (13.5-17.0); LYMPHOCYTES % (AUTO) 15.3 % (13-45); MEAN CORPUSCULAR HEMOGLOBIN 30.4 pg (27.0-33.4); MEAN CORPUSCULAR HGB CONC 34.4 g/dL (32.0-36.0); MEAN CORPUSCULAR VOLUME 88 fl (80-97); MONOCYTES % (AUTO) 10.1 % (3-13); PLATELET COUNT 160 10^3/uL (150-450); RED BLOOD COUNT 2.71 10^6/uL (4.35-5.55); RED CELL DISTRIBUTION WIDTH 15.1 % (11.5-14.0); SEGMENTED NEUTROPHILS % (AUTO) 71.2 % (42-78); TOTAL CELLS COUNTED % (AUTO) 100 %; WHITE BLOOD COUNT 6.8 10^3/uL (4.0-10.5)
[2018-07-12 06:11] LABS: CALCIUM 9.5 mg/dL (8.4-10.2); GLUCOSE 91 mg/dL (75-110); POTASSIUM 4.5 mmol/L (3.6-5.0)
[2018-07-12 06:17] LABS: CARBON DIOXIDE 12 mmol/L (22-30); CHLORIDE 99 mmol/L (98-107); SODIUM 136.6 mmol/L (137-145)
[2018-07-12 06:24] LABS: BLOOD UREA NITROGEN 157 mg/dL (7-20)
[2018-07-12 06:25] LABS: ANION GAP 26 (5-19)
[2018-07-12] MEDS: HEPARIN SOD (PORCINE) 5,000 UNIT/ML 1 ML SYRINGE SUBCUT SCH (06:32)
[2018-07-12] MEDS ORDERED: TRAZODONE HCL 50 MG TABLET PO PRN (06:56)
[2018-07-12] MEDS ORDERED: NICOTINE 14 MG/24 HR PATCH.TD24 TD ONE (07:00)
[2018-07-12] MEDS ORDERED: EPOETIN ALFA INJ 20000 UNIT/1 ML VIAL (RENAL) IV PRN (08:30)
--- NOTE | 2018-07-12 12:03 | PDOC DISCHARGE SUMMARY ---
General - Admit/Disc Date/PCP Admission Date/Primary Care Provider: 07/11/18 15:34 Discharge Date: 07/12/18 - Discharge Diagnosis (1) Metabolic acidosis Is this a current diagnosis for this admission?: Yes (2) Missed dialysis Is this a current diagnosis for this admission?: Yes (4) Hypertensive urgency Is this a current diagnosis for this admission?: Yes (5) Possible otitis media Is this a current diagnosis for this admission?: Yes (6) Nonobstructive bilateral kidney stone Is this a current diagnosis for this admission?: Yes (7) ADPKD (autosomal dominant polycystic kidney disease) Is this a current diagnosis for this admission?: Yes - Additional Information Resuscitation Status: Full Code Home Medications: Amlodipine Besylate [Norvasc 5 mg Tablet] 5 mg PO DAILY 07/11/18 Clonidine HCl [Catapres 0.1 mg Tablet] 0.1 mg PO TID 07/11/18 History of Present Illness History of Present Illness: TYLER REYNOLDS JR is a very pleasant but unfortunate 32 year old male patient with past medical history of hypertension, bilateral adult polycystic kidney disease, nonobstructive kidney stones bilateral and end-stage renal disease on hemodialysis, presents with chief complaint of right flank pain which radiates to his groin. Of note patient has not been dialyzed for the last 2 weeks due to lack of transport. His initial blood work shows BUN of 155, creatinine 22 GFR 2 bicarb of 28, fortunately his potassium is within normal limits. Patient also complains of sensation of fullness in his right ear. On examination his right eardrum is bulging and mildly hyperemic. His CT scan of the abdomen revealed bilateral polycystic kidney disease and bilateral intrarenal nonobstructive kidney stones. Patient denies any fever, chills, cough, chest pain, nausea, palpitation, diaphoresis, or diarrhea. ER attending has consulted Dr. Alberto who is going to dialyze him tomorrow. Hospital Course Hospital Course: Mr. Reynolds is a very pleasant but unfortunate 36 years old male patient with end-stage renal disease secondary to adult polycystic kidney presents with chief complaint of right flank pain and also he missed his dialysis for more than 2 weeks due to lack of transportation. At presentation patient also found to have hypertensive urgency with blood pressure of 181/118 after he was given Lopressor and hydralazine his blood pressure is now improving. This morning I seen patient while he is getting dialysis. And patient is adamant to go home for the holidays and also he told me his transportation problem has been solved so he will get his dialysis regularly. Physical Exam Vital Signs: Temp Pulse Resp BP Pulse Ox 98.3 F 73 22 H 156/99 H 99 07/12/18 03:30 07/12/18 07:00 07/12/18 03:30 07/12/18 05:37 07/12/18 03:30 Intake & Output 07/11/18 07/12/18 07/13/18 06:59 06:59 06:59 Intake Total 368 Balance 368 Weight 175.7 kg General appearance: PRESENT: no acute distress, well-developed, well-nourished Head exam: PRESENT: atraumatic, normocephalic Eye exam: PRESENT: conjunctiva pink, EOMI, PERRLA. ABSENT: scleral icterus Ear exam: PRESENT: normal external ear exam Mouth exam: PRESENT: moist, tongue midline Neck exam: ABSENT: carotid bruit, JVD, lymphadenopathy, thyromegaly Respiratory exam: PRESENT: clear to auscultation marianela. ABSENT: rales, rhonchi, wheezes Cardiovascular exam: PRESENT: RRR. ABSENT: diastolic murmur, rubs, systolic murmur Pulses: PRESENT: normal dorsalis pedis pul Vascular exam: PRESENT: normal capillary refill GI/Abdominal exam: PRESENT: normal bowel sounds, soft. ABSENT: distended, gua rding, mass, organolmegaly, rebound, tenderness Rectal exam: PRESENT: deferred Extremities exam: PRESENT: full ROM. ABSENT: calf tenderness, clubbing, pedal edema Neurological exam: PRESENT: alert, awake, oriented to person, oriented to place, oriented to time, oriented to situation, CN II-XII grossly intact. ABSENT: harshil r sensory deficit Psychiatric exam: PRESENT: appropriate affect, normal mood. ABSENT: homicidal ideation, suicidal ideation Skin exam: PRESENT: dry, intact, warm. ABSENT: cyanosis, rash Results Laboratory Results: 07/12/18 05:17 07/12/18 05:17 07/11/18 07/11/18 07/11/18 10:35 11:24 16:55 WBC RBC Hgb Hct MCV MCH MCHC RDW Plt Count Seg Neutrophils % Lymphocytes % Monocytes % Eosinophils % Basophils % Absolute Neutrophils Absolute Lymphocytes Absolute Monocytes Absolute Eosinophils Absolute Basophils Carbonic Acid 0.93 L HCO3/H2CO3 Ratio 15:1 ABG pH 7.28 L ABG pCO2 30.8 L ABG pO2 91.2 ABG HCO3 14.1 L ABG O2 Saturation 96.2 ABG Base Excess -11.5 FiO2 ROOM AIR Sodium 142.0 Potassium 4.6 Chloride 100 Carbon Dioxide 14 L Anion Gap 28 H BUN 155 H Creatinine 22.00 H Est GFR ( Amer) 3 L Est GFR (Non-Af Amer) 2 L Glucose 101 Calcium 9.9 Total Bilirubin 0.8 AST 15 L ALT 15 L Alkaline Phosphatase 68 Total Protein 6.9 Albumin 4.3 Lipase 158.0 Urine Color STRAW Urine Appearance CLEAR Urine pH 6.0 Ur Specific [place] 1.011 Urine Protein >=500 H Urine Glucose (UA) 150 H Urine Ketones TRACE H Urine Blood SMALL H Urine Nitrite NEGATIVE Ur Leukocyte Esterase TRACE H Urine WBC (Auto) 8 Urine RBC (Auto) 3 07/12/18 07/12/18 05:17 05:17 WBC 6.8 RBC 2.71 L Hgb 8.3 L Hct 24.0 L MCV 88 MCH 30.4 MCHC 34.4 RDW 15.1 H Plt Count 160 Seg Neutrophils % 71.2 Lymphocytes % 15.3 Monocytes % 10.1 Eosinophils % 2.2 Basophils % 1.2 Absolute Neutrophils 4.8 Absolute Lymphocytes 1.0 Absolute Monocytes 0.7 Absolute Eosinophils 0.2 Absolute Basophils 0.1 Carbonic Acid HCO3/H2CO3 Ratio ABG pH ABG pCO2 ABG pO2 ABG HCO3 ABG O2 Saturation ABG Base Excess FiO2 Sodium 136.6 L Potassium 4.5 Chloride 99 Carbon Dioxide 12 L Anion Gap 26 H BUN 157 H Creatinine 22.87 H Est GFR ( Amer) 3 L Est GFR (Non-Af Amer) 2 L Glucose 91 Calcium 9.5 Total Bilirubin AST ALT Alkaline Phosphatase Total Protein Albumin Lipase Urine Color Urine Appearance Urine pH Ur Specific [place] Urine Protein Urine Glucose (UA) Urine Ketones Urine Blood Urine Nitrite Ur Leukocyte Esterase Urine WBC (Auto) Urine RBC (Auto) Impressions: Abdomen/Pelvis CT 07/11/18 12:30 IMPRESSION: Polycystic kidney disease. No acute findings. There are intrarenal calculi bilaterally that generally appear to be in the bartholomew of some of the cysts. No ureteral stones. Qualifiers - * PATIENT BEING DISCHARGED WITH ANY OF THE FOLLOWING DIAGNOSIS: No
--- NOTE | 2018-07-12 17:41 | PDOC CONSULTATION ---
Consultation Consult Date: 07/12/18 Consult reason:: ESRD for dialysis History of Present Illness Admission Date/PCP: 07/11/18 15:34 History of Present Illness: TYLER REYNOLDS JR is a 32 year old male patient with past medical history of hypertension, adult polycystic kidney disease, nonobstructive kidney stones bilateral and end-stage renal disease on hemodialysis, presents with chief complaint of right flank pain which radiates to his groin. He dialyzes in [facility] and has a history of being extremely noncompliant and misses multiple treatments. Of note patient has not been dialyzed for the last 2 weeks due to lack of transport. His initial blood work shows BUN of 155, creatinine 22 GFR 2 bicarb of 28, and his potassium is within normal limits. His CT scan of the abdomen revealed bilateral polycystic kidney disease and bilateral intrarenal nonobstructive kidney stones. Patient denies any fever, chills, cough, chest pain, nausea, palpitation, diaphoresis, or diarrhea.He is currently undergoing dialysis when he is being seen. He is asking if his dialysis treatment time could be cut short to 2 hours when I said he should be on for a prolonged treatment for at least 3-1/2 hours since he has missed 2 weeks of hemodialysis and is showing early features of uremia.Labs and medications were reviewed with the patient. Past Medical History Cardiac Medical History: Reports: Hypertension-primary Denies: Coronary Artery Disease, Myocardial Infarction Pulmonary Medical History: Denies: Asthma, Bronchitis, Chronic Obstructive Pulmonary Disease (COPD), Pneumonia, Tuberculosis Neurological Medical History: Denies: Seizures Renal/ Medical History: Reports: End Stage Renal Disease, Secondary Hyperparathyroidism Musculoskeltal Medical History: Denies: Arthritis Psychiatric Medical History: Reports: Depression Hematology Medical History: Reports Anemia of Chronic Kidney Disease Past Surgical History Past Surgical History: Reports: Vascular Surgery - AV fistula L forearm Social History Smoking Status: Current Every Day Smoker Cigarettes Packs Per Day: 0.5 Number of Years Smokin Last Time Smoked: 06/2018 Frequency of Alcohol Use: Social Hx Recreational Drug Use: Yes Drugs: Marijuana Hx Prescription Drug Abuse: No - Advance Directive Resuscitation Status: Full Code Family History Parental Family History Reviewed: Yes - Negative for ESRD Children Family History Reviewed: No Sibling(s) Family History Reviewed.: No Medication/Allergy Home Medications: Amlodipine Besylate [Norvasc 5 mg Tablet] 5 mg PO DAILY 07/11/18 Clonidine HCl [Catapres 0.1 mg Tablet] 0.1 mg PO TID 07/11/18 Amoxicillin 1 tab PO TID #14 tab 07/12/18 Metoprolol Tartrate [Lopressor 50 mg Tablet] 50 mg PO Q12 60 Days #60 tablet 07/12/18 Allergies/Adverse Reactions: No Known Allergies Allergy (Verified 02/14/17 13:17) Review of Systems Constitutional: PRESENT: as per HPI, fatigue, weakness. ABSENT: fever(s), headache(s), night sweats Ears: ABSENT: hearing changes Nose, Mouth, and Throat: ABSENT: mouth pain, sore throat Cardiovascular: ABSENT: chest pain, dyspnea on exertion, edema, orthropnea, palpitations Gastrointestinal: PRESENT: abdominal pain. ABSENT: coffee ground emesis, diarrhea, dysphagia, heartburn Genitourinary: ABSENT: dysuria, hematuria Integumentary: ABSENT: erythema, lesions, pruritus, rash Neurological: ABSENT: abnormal gait, confusion Psychiatric: PRESENT: depression Hematologic/Lymphatic: ABSENT: easy bruising, lymphadenopathy Physical Exam Vital Signs: Temp Pulse Resp BP Pulse Ox 98.3 F 73 22 H 156/99 H 99 07/12/18 13:23 07/12/18 13:23 07/12/18 13:23 07/12/18 13:23 07/12/18 13:23 Intake & Output 07/11/18 07/12/18 07/13/18 06:59 06:59 06:59 Intake Total 368 118 Output Total 2400 Balance 368 -2282 Weight 175.7 kg General appearance: PRESENT: no acute distress, cooperative, disheveled Eye exam: PRESENT: EOMI, PERRLA. ABSENT: nystagmus Mouth exam: ABSENT: moist Neck exam: ABSENT: lymphadenopathy, meningismus, tenderness, thyromegaly, tracheal deviation Respiratory exam: PRESENT: clear to auscultation marianela, decreased breath sounds. ABSENT: crackles Cardiovascular exam: PRESENT: +S1, +S2 GI/Abdominal exam: PRESENT: normal bowel sounds, soft. ABSENT: organomegaly, tenderness Extremities exam: ABSENT: pedal edema Neurological exam: PRESENT: alert, awake, oriented to person, oriented to place Skin exam: ABSENT: erythema, rash Results Laboratory Results: 07/12/18 05:17 07/12/18 05:17 07/12/18 07/12/18 05:17 05:17 WBC 6.8 RBC 2.71 L Hgb 8.3 L Hct 24.0 L MCV 88 MCH 30.4 MCHC 34.4 RDW 15.1 H Plt Count 160 Seg Neutrophils % 71.2 Lymphocytes % 15.3 Monocytes % 10.1 Eosinophils % 2.2 Basophils % 1.2 Absolute Neutrophils 4.8 Absolute Lymphocytes 1.0 Absolute Monocytes 0.7 Absolute Eosinophils 0.2 Absolute Basophils 0.1 Sodium 136.6 L Potassium 4.5 Chloride 99 Carbon Dioxide 12 L Anion Gap 26 H BUN 157 H Creatinine 22.87 H Est GFR ( Amer) 3 L Est GFR (Non-Af Amer) 2 L Glucose 91 Calcium 9.5 Impressions: Abdomen/Pelvis CT 07/11/18 12:30 IMPRESSION: Polycystic kidney disease. No acute findings. There are intrarenal calculi bilaterally that generally appear to be in the bartholomew of some of the cysts. No ureteral stones. Assessment & Plan - Diagnosis (1) ADPKD (autosomal dominant polycystic kidney disease) Is this a current diagnosis for this admission?: Yes Plan: Etiology for his ESRD. (2) End stage renal disease Plan: Patient currently undergoing dialysis after missing 2 weeks of treatments. He has had a history of severe noncompliance with diet, medications and dialysis t reatments. Patient is having no issues on dialysis. Is being supervised to ensure safe and smooth procedure. Hemodynamically stable. Plan to remove between 2 and 3 L as tolerated. Dialysis orders were reviewed and discussed with the treating dialysis nurse.Advised on compliance with his dialysis treatments when he is discharged. (3) Hypertensive urgency Is this a current diagnosis for this admission?: Yes Plan: After appropriate treatment it looks a whole lot better. Advised on compliance with treatments and dialysis and medications. (4) Metabolic acidosis Is this a current diagnosis for this admission?: Yes Plan: Should respond to hemodialysis. Advised the need for compliance. (5) Missed dialysis Is this a current diagnosis for this admission?: Yes Plan: Discussed the consequences of missing dialysis including severe uremia, high potassium and cardiac arrest.
[2018-07-13] MEDS ORDERED: NICOTINE 14 MG/24 HR PATCH.TD24 TD SCH (10:00)
== END 2018-07-12 13:43 | disposition home or self-care (01) ==
LOC: ER 11:12 → EH 15:34 → INTOOBSV 15:34 → 3S 17:09
PROVIDERS: ADMIT Internal Medicine; ATTEND Internal Medicine
PROC: 5A1D70Z Performance of Urinary Filtration, Intermittent, Less than 6 Hours Per Day (ICD-10-PCS; principal; 2018-07-12)
DX: I16.0 Hypertensive urgency (principal); Q61.2 Polycystic kidney, adult type; I12.0 Hypertensive chronic kidney disease with stage 5 chronic kidney disease or end stage renal disease; E87.2 Acidosis; N18.6 End stage renal disease; Z99.2 Dependence on renal dialysis; Z91.15 Patient's noncompliance with renal dialysis; N20.0 Calculus of kidney; F17.210 Nicotine dependence, cigarettes, uncomplicated; Z79.899 Other long term (current) drug therapy; H93.8X1 Other specified disorders of right ear
CPT/HCPCS: 90970; G0257; 36415; 74176; 80048; 80053; 81001; 82803; 83690; 85025; 87040; 87086; 93005; 93010; 96374; 96375; 99285; G0378; J0360; J0696; J1644; J2270; J2405; Q4081

== ENCOUNTER 2019-01-14 06:39 | Emergency (ER) | payer MEDICARE, OTHER ==
[2019-01-14] MEDS ORDERED: ONDANSETRON HCL INJ/PF 4 MG/2 ML SDV IV ONE (07:41)
[2019-01-14] MEDS ORDERED: HYDROMORPHONE HCL INJ/PF 2 MG/ML AMPULE IV ONE (07:41)
--- NOTE | 2019-01-14 07:54 | RADIOLOGY REPORT (SQ) ---
Chest and left RIBS total four view on 01/14/2019 at 7:20 AM CLINICAL INDICATION: Left rib pain after fall COMPARISON: 08/10/2015 FINDINGS: There is mild elevation of the right hemidiaphragm. There is mild left lower lung atelectasis. There is trace left pleural effusion. There is no pneumothorax. Minimal vascular congestion is noted. The lungs are otherwise clear. Cardiac, hilar and mediastinal contours are within normal limits. There are acute or subacute mildly displaced left posterior fifth and sixth rib fractures. No other rib fracture is noted. IMPRESSION: Acute or subacute mildly displaced left posterior fifth and sixth rib fractures.
[2019-01-14] MEDS ORDERED: CLONIDINE HCL 0.2 MG TABLET PO ONE (08:05)
[2019-01-14] MEDS ORDERED: METOPROLOL TARTRATE PF/INJ 5 MG/5 ML SDV IV ONE (08:06)
--- NOTE | 2019-01-14 09:34 | ER Document Report ---
ED General - General Chief Complaint: Rib Pain Stated Complaint: RIB PAIN Time Seen by Provider: 01/14/19 07:22 Primary Care Provider: ARNOLDO PAULA PA-C [Primary Care Provider] - Follow up as needed TRAVEL OUTSIDE OF THE [place] IN LAST 30 DAYS: No - HPI Patient complains to provider of: Left rib pain Notes: Patient states fall 2 days ago with left-sided chest pain thinks he broke 2 ribs. Patient also is a renal dialysis patient is supposed to have dialysis today. Patient states lives with breath and significant pain. Patient denies any fever chills nausea vomiting diarrhea. Patient states that he has not taken his blood pressure medication today. - Related Data Allergies/Adverse Reactions: No Known Allergies Allergy (Verified 02/14/17 13:17) Past Medical History - Social History Smoking Status: Current Every Day Smoker Family History: Reviewed & Not Pertinent, Hypertension Patient has suicidal ideation: No Patient has homicidal ideation: No - Past Medical History Cardiac Medical History: Reports: Hx Hypertension - Medicated Denies: Hx Coronary Artery Disease, Hx Heart Attack Pulmonary Medical History: Denies: Hx Asthma, Hx Bronchitis, Hx COPD, Hx Pneumonia, Hx Tuberculosis Neurological Medical History: Denies: Hx Cerebrovascular Accident, Hx Seizures Renal/ Medical History: Reports: Hx End Stage Renal Disease, Hx Hemodialysis, Hx Renal Insufficiency. Denies: Hx Peritoneal Dialysis Musculoskeletal Medical History: Denies Hx Arthritis Psychiatric Medical History: Reports: Hx Depression Past Surgical History: Reports: Hx Vascular Surgery - AV fistula L forearm - Immunizations Immunizations up to date: Yes Hx Diphtheria, Pertussis, Tetanus Vaccination: Yes Review of Systems - Review of Systems Constitutional: No symptoms reported EENT: No symptoms reported Cardiovascular: Other - Chest wall pain Respiratory: No symptoms reported Gastrointestinal: No symptoms reported Genitourinary: No symptoms reported Male Genitourinary: No symptoms reported Musculoskeletal: No symptoms reported Skin: No symptoms reported Hematologic/Lymphatic: No symptoms reported Neurological/Psychological: No symptoms reported Physical Exam - Vital signs Vitals: Resp 27 H 01/14/19 06:42 Interpretation: Normal - General General appearance: Appears well, Alert - HEENT Head: Normocephalic, Atraumatic Eyes: Normal Pupils: PERRL - Respiratory Respiratory status: No respiratory distress Chest status: Tender - Tenderness to palpation of the left side she has no crepitus Breath sounds: Normal Chest palpation: Normal - Cardiovascular Rhythm: Regular Heart sounds: Normal auscultation Murmur: No - Abdominal Inspection: Normal Distension: No distension Bowel sounds: Normal Tenderness: Nontender Organomegaly: No organomegaly - Back Back: Normal, Nontender - Extremities General upper extremity: Normal inspection, Nontender, Normal color, Normal ROM, Normal temperature General lower extremity: Normal inspection, Nontender, Normal color, Normal ROM, Normal temperature, Normal weight bearing. No: Edward's sign - Neurological Neuro grossly intact: Yes Cognition: Normal Orientation: AAOx4 [place] Coma Scale Eye Opening: Spontaneous [place] Coma Scale Verbal: Oriented Sincere Coma Scale Motor: Obeys Commands Sincere Coma Scale Total: 15 Speech: Normal Motor strength normal: LUE, RUE, LLE, RLE Sensory: Normal - Psychological Associated symptoms: Normal affect, Normal mood - Skin Skin Temperature: Warm Skin Moisture: Dry Skin Color: Normal Course - Re-evaluation Re-evalutation: 01/14/19 14:11 2 rib fracture seen patient is pain and breathing better after Dilaudid. Patient stating he would like to go to dialysis at this time and would like to be discharged. Pain medication was given to the patient patient states difficulty in follow-up primary care providers with his insurance we will have our social media community manager contact the patient. - Vital Signs Vital signs: Temp Pulse Resp BP Pulse Ox 98 F 14 190/137 H 92 01/14/19 09:31 01/14/19 09:31 01/14/19 09:31 01/14/19 09:31 Discharge - Discharge Clinical Impression: Rib fractures Qualifiers: Encounter type: initial encounter Rib fracture type: multiple ribs Fracture type: closed Laterality: left Qualified Code(s): S22.42XA - Multiple fractures of ribs, left side, initial encounter for closed fracture Condition: Good Disposition: HOME, SELF-CARE Instructions: Oral Narcotic Medication ([facility]), Rib Injuries and Fractures ([facility]) Additional Instructions: Your evaluation today shows 2 rib fractures on the left side. Please use the incentive spirometer to take deep breaths. Please continue to go to dialysis as scheduled. Please take the morphine for your pain you may also take Tylenol and lidocaine patches. Prescriptions: Morphine Sulfate [Morphine Ir 15 Mg Tablet] 15 mg PO Q6 #24 tablet Ondansetron [Zofran Odt 4 mg Tablet] 1 - 2 tab PO Q4H PRN #30 tab.rapdis PRN Reason: For Nausea/Vomiting Referrals: ARNOLDO PAULA PA-C [Primary Care Provider] - Follow up as needed
[2019-01-14 09:37] VITALS: BP 190/137
== END 2019-01-14 09:49 | disposition home or self-care (01) ==
LOC: ER 06:39
DX: S22.42XA Multiple fractures of ribs, left side, initial encounter for closed fracture (principal); W19.XXXA Unspecified fall, initial encounter; I12.0 Hypertensive chronic kidney disease with stage 5 chronic kidney disease or end stage renal disease; N18.6 End stage renal disease; Z99.2 Dependence on renal dialysis; F17.200 Nicotine dependence, unspecified, uncomplicated
CPT/HCPCS: 99283; 96374; 96375; 71101; A9270; J3490; J1170; J2405

== ENCOUNTER 2019-03-21 15:36 | Emergency (ER) | payer MEDICARE, OTHER ==
[2019-03-21] MEDS ORDERED: CALCIUM GLUCONATE 1000 MG/10 ML INJ IV ONE (16:01)
[2019-03-21 16:03] LABS: VENOUS BLOOD BASE EXCESS -3.2 mmol/L; VENOUS BLOOD HCO3 24.1 mmol/L (20-32); VENOUS BLOOD PCO2 52.9 mmHg (35-63); VENOUS BLOOD PH 7.28 (7.30-7.42)
[2019-03-21 16:05] LABS: ABSOLUTE BASOPHILS # (AUTO) 0.1 10^3/uL (0.0-0.2); ABSOLUTE EOSINOPHILS # (AUTO) 0.4 10^3/uL (0.0-0.6); ABSOLUTE LYMPHOCYTES (AUTO) 0.9 10^3/uL (0.5-4.7); ABSOLUTE MONOCYTES (AUTO) 0.4 10^3/uL (0.1-1.4); ABSOLUTE NEUT (AUTO) 7.5 10^3/uL (1.7-8.2); BASOPHILS % (AUTO) 1.1 % (0-2); EOSINOPHILS % (AUTO) 4.1 % (0-6); HEMATOCRIT 33.6 % (37.9-51.0); LYMPHOCYTES % (AUTO) 9.5 % (13-45); MEAN CORPUSCULAR HEMOGLOBIN 30.1 pg (27.0-33.4); MEAN CORPUSCULAR HGB CONC 32.8 g/dL (32.0-36.0); MEAN CORPUSCULAR VOLUME 92 fl (80-97); MONOCYTES % (AUTO) 3.9 % (3-13); PLATELET COUNT 257 10^3/uL (150-450); RED BLOOD COUNT 3.66 10^6/uL (4.35-5.55); RED CELL DISTRIBUTION WIDTH 17.3 % (11.5-14.0); SEGMENTED NEUTROPHILS % (AUTO) 81.4 % (42-78); TOTAL CELLS COUNTED % (AUTO) 100 %; WHITE BLOOD COUNT 9.2 10^3/uL (4.0-10.5)
--- NOTE | 2019-03-21 16:14 | RADIOLOGY REPORT (SQ) ---
EXAM DESCRIPTION: CHEST SINGLE VIEW COMPLETED DATE/TIME: 03/21/2019 4:05 pm REASON FOR STUDY: SOB COMPARISON: 08/10/2015 NUMBER OF VIEWS: One view. TECHNIQUE: Single frontal radiographic view of the chest acquired. LIMITATIONS: None. FINDINGS: LUNGS AND PLEURA: There is perihilar and basilar interstitial airspace disease. MEDIASTINUM AND HILAR STRUCTURES: No masses. Contour normal. HEART AND VASCULAR STRUCTURES: Heart is enlarged with central vascular prominence. BONES: No acute findings. HARDWARE: None in the chest. OTHER: No other significant finding. IMPRESSION: Cardiomegaly and vascular congestion new from prior study. TECHNICAL DOCUMENTATION: JOB ID: [id number] [employer]- All Rights Reserved Reading location - IP/workstation name: [email or web address]
[2019-03-21 16:18] LABS: ALBUMIN 4.5 g/dL (3.5-5.0); ALKALINE PHOSPHATASE 85 U/L (38-126); ASPARTATE AMINO TRANSFERASE 43 U/L (17-59); CALCIUM 10.8 mg/dL (8.4-10.2); CHLORIDE 93 mmol/L (98-107); GLUCOSE 79 mg/dL (75-110); TOTAL PROTEIN 7.3 g/dL (6.3-8.2)
[2019-03-21 16:20] VITALS: BP 158/120
[2019-03-21 16:23] LABS: CARBON DIOXIDE 21 mmol/L (22-30)
[2019-03-21 16:27] LABS: POTASSIUM 7.9 mmol/L (3.6-5.0)
[2019-03-21] MEDS ORDERED: DEXTROSE 50%-WATER 25 GM/50 ML DISP.SYRIN IV ONE (16:28)
[2019-03-21] MEDS ORDERED: INSULIN REG, HUMAN 100 UNIT/ML 3 ML VIAL (PYX) IV ONE (16:28)
[2019-03-21 16:38] LABS: BLOOD UREA NITROGEN 125 mg/dL (7-20)
[2019-03-21] MEDS ORDERED: ALBUTEROL SULFATE 0.083% NEB 2.5 MG/3 ML AMPUL NEB ONE (16:41)
[2019-03-21] MEDS ORDERED: SODIUM POLYSTYRENE SULFONATE 15 GM/60 ML PO ONE (17:00)
[2019-03-21] MEDS ORDERED: SODIUM BICARBONATE 8.4% INJ 50 MEQ/50 ML DISP.SYRIN IV ONE (17:00)
[2019-03-21 17:30] LABS: ANION GAP 22 (5-19)
--- NOTE | 2019-03-21 17:39 | ER Document Report ---
ED General <SARAI AMAYA Benjamin - Last Filed: 03/21/19 17:51> - General TRAVEL OUTSIDE OF THE [place] IN LAST 30 DAYS: No <IMANI CLIFFORD - Last Filed: 03/21/19 18:36> - General Chief Complaint: Shortness Of Breath Stated Complaint: SHORTNESS OF BREATH Time Seen by Provider: 03/21/19 15:41 Primary Care Provider: ARNOLDO PAULA PA-C [Primary Care Provider] - Follow up as needed Notes: 33-year-old male with history of end-stage renal disease with dialysis on Tuesdays and Saturdays, last dialysis this past Sunday presents the emergency department by EMS with respiratory distress. Patient arrived on BiPAP. Patient has been pseudo-compliant with his dialysis as his previous visit on Sunday he left an hour early. On arrival patient was tachycardic at approximately 115, on 100% FiO2 and satting 100%, tachypneic, bibasilar crackles were heard on exam. Patient was alert and oriented without confusion or altered mental status. Denies any recent illness, fevers, chills, denies chest pain, denies nausea or diaphoresis, does make a very little bit of urine. (IMANI CLIFFORD) - Related Data Allergies/Adverse Reactions: No Known Allergies Allergy (Verified 02/14/17 13:17) Past Medical History - Social History Smoking Status: Current Every Day Smoker Chew tobacco use (# tins/day): No Frequency of alcohol use: Occasional Drug Abuse: Marijuana Family History: Reviewed & Not Pertinent, Hypertension Patient has suicidal ideation: No Patient has homicidal ideation: No - Past Medical History Cardiac Medical History: Reports: Hx Hypertension - Medicated Denies: Hx Coronary Artery Disease, Hx Heart Attack Pulmonary Medical History: Denies: Hx Asthma, Hx Bronchitis, Hx COPD, Hx Pneumonia, Hx Tuberculosis Neurological Medical History: Denies: Hx Cerebrovascular Accident, Hx Seizures Renal/ Medical History: Reports: Hx End Stage Renal Disease, Hx Hemodialysis, Hx Renal Insufficiency. Denies: Hx Peritoneal Dialysis Musculoskeletal Medical History: Denies Hx Arthritis Psychiatric Medical History: Reports: Hx Depression Past Surgical History: Reports: Hx Vascular Surgery - AV fistula L forearm - Immunizations Immunizations up to date: Yes Hx Diphtheria, Pertussis, Tetanus Vaccination: Yes <IMANI CLIFFORD - Last Filed: 03/21/19 18:36> Review of Systems - Review of Systems Constitutional: See HPI EENT: No symptoms reported Cardiovascular: No symptoms reported Respiratory: No symptoms reported Gastrointestinal: No symptoms reported Genitourinary: No symptoms reported Male Genitourinary: No symptoms reported Musculoskeletal: No symptoms reported Skin: No symptoms reported Hematologic/Lymphatic: No symptoms reported Neurological/Psychological: No symptoms reported <IMANI CLIFFORD - Last Filed: 03/21/19 18:36> Physical Exam <IMANI CLIFFORD - Last Filed: 03/21/19 18:36> - Vital signs Vitals: Pulse Ox 97 03/21/19 15:39 - Notes Notes: PHYSICAL EXAMINATION: Reviewed vital signs and charting by RN GENERAL: Alert, interacts appropriately. Moderate distress. HEAD: Normocephalic, atraumatic. EYES: Pupils equal and round. Extraocular movements intact. ENT: Deferred due to BiPAP NECK: Full range of motion. Trachea midline. LUNGS: Bibasilar crackles, tachypnea HEART: Regular rate and rhythm. No murmur ABDOMEN: soft, non-tender. No distention. Bowel sounds present EXTREMITIES: Moves all 4 extremities spontaneously. Bilateral lower extremity nonpitting edema to just above the level of the ankles PSYCH: Normal affect, normal mood. SKIN: Warm, dry, normal turgor. No rashes or lesions noted. (IMANI CLIFFORD) Course - Laboratory Result Diagrams: 03/21/19 15:45 03/21/19 15:45 <SARAI AMAYA - Last Filed: 03/21/19 17:51> - Laboratory Result Diagrams: 03/21/19 15:45 03/21/19 15:45 <IMANI CLIFFORD - Last Filed: 03/21/19 18:36> - Re-evaluation Re-evalutation: 03/21/19 17:45 I personally and independently obtained patient history and examined the patient and have reviewed the APC's note, reviewed, discussed and agree with their assessment and plan. HISTORY OF PRESENT ILLNESS: Patient is a 83-year-old male that presents to the emergency department for chief complaint of shortness of breath. Patient gets hemodialysis Tuesdays and Saturdays. He reports full dialysis treatment on Sunday. Patient denies h istory of intubation or CPAP in the past. Currently states his peripheral edema is at his baseline. ROS: Constitutional: Negative for fever. Cardiovascular: Negative for chest pain. Respiratory: shortness of breath. Gastrointestinal: Negative for vomiting or abdominal pain Musculoskeletal: Negative for arm, leg or back pain Skin: Negative for rash. Neurological: Negative for weakness or numbness. Unless otherwise stated in this report the patient's positive and negative responses for review of systems for constitutional, eyes, ENT, cardiovascular, respiratory, gastrointestinal, neurological, genitourinary, musculoskeletal, and integumentary systems and related systems to the presenting problem are either as stated in the HPI or were not pertinent or were negative for the symptoms and/or complaints related to the presenting medical problem. PHYSICAL EXAMINATION: Vital signs reviewed, nursing noted reviewed. GENERAL: in moderate respiratory distress on BiPAP HEAD: Atraumatic, normocephalic. EYES: Eyes appear normal, conjunctiva are normal. ENT: nares patent, oropharynx clear without exudates. Moist mucous membranes. NECK: Normal range of motion, supple without lymphadenopathy LUNGS: Breath sounds diminished with bibasilar rhonchi to auscultation bilaterally and equal. tachypnic with moderate accessory muscle use HEART:tachycardic rate and regular rhythm without murmurs ABDOMEN: Soft, nontender, normoactive bowel sounds. No rebound, guarding, or rigidity. No masses appreciated. EXTREMITIES: left forearm dialysis fistula with good bruit and thrill. Nontender, good range of motion, +2 pitting edema bilaterally. NEUROLOGICAL: GCS 15, No focal neurological deficits. Moves all extremities spontaneously Motor and sensory grossly intact on exam. PSYCH: Normal mood, normal affect. SKIN: Warm, Dry, normal turgor, no rashes or lesions noted on exposed MEDICAL DECISION MAKING: Patient presented in respiratory distress on BiPAP by EMS. BiPAP will be continued for increased work of breathing. He is mentating appropriately and protecting his airway. Patient reports feeling better now that he is on BiPAP. FiO2 has been titrated down and patient is maintaining his O2 saturation. He has bibasilar rhonchi and significant peripheral edema to suggest volume overloa d. His EKG showed hyperacute T waves with ST depressions laterally and no STEMI. Concern at initial presentation for hyperkalemia, patient given calcium upon arrival to the emergency room. His lab work did show hyperkalemia and chest x-ray confirmed pulmonary edema. I discussed patient's care with Dr. Cox our on-call breaker engineer who states we are unable to accommodate any dialysis at this point in time. Patient is requiring emergent dialysis for hyperkalemia and respiratory distress. He will be transferred to outside facility for further ICU admission and dialysis. He is awake and mentating and not currently requiring intubation. He has been given hyperkalemia treatment. Patient requiring transfer for emergent dialysis, benefits of transfer outweigh risk currently. Please review detail APC documentation. *Note is created using voice recognition software and may contain spelling, syntax or grammatical errors. (SARAI AMAYA) 03/21/19 18:32 Patient presented on BiPAP. VBG was initially obtained and pH was 7.28 and his PCO2 was 56. EKG showed hyperacute T waves with lateral ST depressions with no evidence of ST elevation. Chest x-ray showed vascular congestion consistent with volume overload. Patient's potassium was 7.9 and he was immediately given calcium gluconate 1 g IV, D50, insulin 10 units IV, and 3 successive albuterol nebulizers to help temporize and shift potassium. A repeat EKG was obtained which did not show any significant interval change so a second gram of calcium gluconate was given IV. Dr. Ellis was called by my supervising physician, Dr. Sarai Amaya, to see if we could arrange emergent dialysis here in the emergency department but this was not possible. I simultaneously [facility] and spoke with Dr. Patel, ICU attending, who accepted the patient for transfer. Patient was then transferred via air to [facility]. I assessed him 10 minutes prior to his transfer and patient was stable, respirations were still mildly tachypneic, his SPO2 was 98% on BiPAP 10/5 with 80% FiO2. He was still tachycardic at approximately 110, blood pressure was within normal limits. Patient successfully transferred. (IMANI CLIFFORD) - Vital Signs Vital signs: Temp Pulse Resp BP Pulse Ox 18 158/120 H 99 03/21/19 16:01 03/21/19 16:01 03/21/19 16:01 - Laboratory Laboratory results interpreted by me: 03/21/19 03/21/19 03/21/19 15:45 15:45 15:45 RBC 3.66 L Hgb 11.0 L Hct 33.6 L RDW 17.3 H Lymph % (Auto) 9.5 L Seg Neutrophils % 81.4 H VBG pH 7.28 L Sodium 136.3 L Potassium 7.9 H* Chloride 93 L Carbon Dioxide 21 L Anion Gap 22 H BUN 125 H Creatinine 12.35 H Est GFR ( Amer) 6 L Est GFR (MDRD) Non-Af 5 L POC Glucose Calcium 10.8 H Direct Bilirubin 1.0 H 03/21/19 17:27 RBC Hgb Hct RDW Lymph % (Auto) Seg Neutrophils % VBG pH Sodium Potassium Chloride Carbon Dioxide Anion Gap BUN Creatinine Est GFR ( Amer) Est GFR (MDRD) Non-Af POC Glucose 116 H Calcium Direct Bilirubin Critical Care Note - Critical Care Note Total time excluding time spent on procedures (mins): 45 <SARAI AMAYA - Last Filed: 03/21/19 17:51> - Critical Care Note Comments: Critical care time 45 exclusive from separate billable procedures for a patient requiring complex medical decision making, and high potential for clinical deterioration. Time spent obtaining history from patient or surrogate, discussions with consultants, development of treatment plan with patient or surrogate, evaluation of patient's response to treatment, examination of patient, ordering and performing treatments and interventions, ordering and review of laboratory studies, re-evaluation of patient's condition, ordering and review of radiographic studies and review of old charts (SARAI AAMYA) Discharge <SARAI AMAYA - Last Filed: 03/21/19 17:51> <IMANI CLIFFORD - Last Filed: 03/21/19 18:36> - Discharge Clinical Impression: Hyperkalemia, Metabolic acidosis Pulmonary edema Qualifiers: Chronicity: acute Qualified Code(s): J81.0 - Acute pulmonary edema Respiratory failure Qualifiers: Chronicity: acute Respiratory failure complication: hypoxia Qualified Code(s): J96.01 - Acute respiratory failure with hypoxia Disposition: [facility] Referrals: ARNOLDO PAULA PA-C [Primary Care Provider] - Follow up as needed
--- NOTE | 2019-03-22 09:52 | EKG REPORT ---
SEVERITY:- ABNORMAL ECG - SINUS TACHYCARDIA LEFT ATRIAL ABNORMALITY NONSPECIFIC IVCD WITH LAD LEFT VENTRICULAR HYPERTROPHY : Confirmed by: Festus Keen MD 22-Mar-2019 09:51:35
--- NOTE | 2019-03-22 09:53 | EKG REPORT ---
SEVERITY:- ABNORMAL ECG - SINUS TACHYCARDIA LEFT ATRIAL ABNORMALITY IVCD, CONSIDER ATYPICAL LBBB LVH : Confirmed by: Festus Keen MD 22-Mar-2019 09:52:38
== END 2019-03-21 18:28 | disposition short-term general hospital (02) ==
LOC: ER 15:36
DX: E87.5 Hyperkalemia (principal); E87.2 Acidosis; J96.01 Acute respiratory failure with hypoxia; I12.0 Hypertensive chronic kidney disease with stage 5 chronic kidney disease or end stage renal disease; N18.6 End stage renal disease; F17.200 Nicotine dependence, unspecified, uncomplicated; Z99.2 Dependence on renal dialysis
CPT/HCPCS: 93005; 94640; 99291; 96374; 96375; 36415; 82962; 85025; 80053; 82803; 71045; 93010; 94660; J0610; J3490; A9270 ×2; J1815